=== PATIENT | male | born 1990 | race Caucasian/White ===

== ENCOUNTER 2021-12-03 20:33 | Emergency (ER) | payer OTHER ==
[~2021-12-03] VITALS: Ht 180.3 cm; Wt 98.6 kg
[2021-12-03] MEDS ORDERED: ENOX30DI5 SQ (20:43)
[2021-12-03 21:28] LABS: BASOPHILS % (AUTO) 0.4 % (0.0-2.0); EOSINOPHILS % (AUTO) 0.7 % (1.0-6.0); HEMATOCRIT 44.7 % (41-53); HEMOGLOBIN 15.7 g/dL (13.5-17.5); LYMPHOCYTES # (AUTO) 2.3 K/uL (1.0-4.8); LYMPHOCYTES % (AUTO) 26.2 % (22.0-44.0); MEAN CORPUSCULAR HEMOGLOBIN 32.7 pg (26.0-34.0); MEAN CORPUSCULAR HGB CONC 35.1 G/dL (31.0-37.0); MEAN CORPUSCULAR VOLUME 93 fL (80-100); MONOCYTES # (AUTO) 0.5 K/uL (0.1-1.0); MONOCYTES % (AUTO) 6.1 % (2.0-9.0); NEUTROPHILS % (AUTO) 66.6 % (40.0-70.0); PLATELET COUNT (AUTO) 246 K/uL (150-450); RED BLOOD CELL COUNT(AUTO) 4.81 MIL/uL (4.50-5.90); RED CELL DISTRIBUTION WIDTH 13.7 % (11.5-14.5)
[2021-12-03 21:42] LABS: ANION GAP 11 mmol/L (8-16); CALCIUM, TOTAL 9.5 mg/dL (8.8-10.5); CARBON DIOXIDE 28 mmol/L (22-29); CHLORIDE 103 mmol/L (98-107); CREATININE 0.98 mg/dL (0.60-1.30); GLOMERULAR FILTR. RATE CALC > 60 mL/min (>60); GLUCOSE,RANDOM 82 mg/dL (70-110); POTASSIUM 3.5 mmol/L (3.5-5.1); SODIUM SERUM 142 mmol/L (136-145); UREA NITROGEN, BLOOD 17 mg/dL (7-18)
[2021-12-03 21:45] LABS: PROTHROMBIN TIME 10.5 SEC (9.4-11.6)
[2021-12-03 21:48] LABS: ALANINE AMINOTRANSFERASE 84 U/L (12-78); ALBUMIN 4.5 g/dL (3.4-5.0); ALKALINE PHOSPHATASE 62 U/L (46-116); ASPARTATE AMINOTRANSFERASE 27 U/L (15-37); BILIRUBIN,TOTAL 0.4 mg/dL (0.1-1.0); TOTAL PROTEIN, SERUM 8.4 g/dL (6.4-8.2)
[2021-12-03] MEDS ORDERED: HYDROmorphone 2 MG/ML VIAL IVP ONE (23:00)
[2021-12-03] MEDS ORDERED: DiphenhydrAMINE HCL 50 MG/ML VIAL IVP ONE (23:00)
[2021-12-03] MEDS ORDERED: IOHEXOL 350 MG/ML 100 ML VIAL ONE (23:14)
[2021-12-03] MEDS ORDERED: SODIUM CHLORIDE 0.9% 100 ML ONE (23:14)
[2021-12-03 23:34] LABS: D-DIMER 0.58 mg/L FEU (0.00-0.50)
[2021-12-04] MEDS ORDERED: HYDROCODONE/ACETAMINOPHEN 5-325 MG TABLET PO ONE (01:45)
[2021-12-04 02:20] VITALS: BP 134/71
== END 2021-12-04 03:02 | disposition home or self-care (01) ==
LOC: EMS 20:38
DX: R07.89 Other chest pain (principal); R06.02 Shortness of breath; Z79.899 Other long term (current) drug therapy
CPT/HCPCS: 36415; 71045; 71275; 80053; 83690; 84484; 85025; 85379; 85610; 85730; 93005 ×2; 96374; 96375; 99285; J1170; J1200; J7050; Q9967